=== PATIENT | male | born 1960 | race African-American/Black ===

== ENCOUNTER 2018-12-12 17:27 | Emergency (ER) | payer MEDICAID ==
[2018-12-12] MEDS ORDERED: HYDROcodone/Acetaminophen 10/325 mg Tablet ONE (19:11)
--- NOTE | 2018-12-12 19:16 | CT ---
CT CERVICAL SPINE PERFORMED WITHOUT CONTRAST ENHANCEMENT: History: Neck pain. FINDINGS: The vertebral bodies are normal in height. There is suggestion of some bony demineralization. There i s some mild disc narrowing at C5-6. There are degenerative facet changes noted. There is asymmetric r ight facet and uncal vertebral changes at C3-4 with some mild right foraminal narrowing. There is bhanu rly pronounced left sided foraminal stenosis related to uncal vertebral and facet changes at this lev el. No central canal stenosis. Lung apices are clear. IMPRESSION: Arthritic changes of the spine. Areas of foraminal stenosis as discussed above. POS: [id number]
== END 2018-12-12 19:43 | disposition home or self-care (01) ==
LOC: ERS 17:27
DX: S46.812A Strain of other muscles, fascia and tendons at shoulder and upper arm level, left arm, initial encounter (principal); Z86.73 Personal history of transient ischemic attack (TIA), and cerebral infarction without residual deficits; X58.XXXA Exposure to other specified factors, initial encounter
CPT/HCPCS: 72125

== ENCOUNTER 2019-04-25 15:02 | Outpatient (CLI) | payer OTHER ==
--- NOTE | 2019-04-26 08:14 | CT ---
CT Chest Abd Pelvis W Con History: c20. Rectal cancer Comparison: CT chest abdomen and pelvis May 2018 Findings: Mild size increase right major perifissural nodule measuring 6 mm. No suspicious intraparen chymal pulmonary nodule. No pneumothorax. No effusion. Thyroid is unremarkable. No mediastinal adenopathy. Prevascular lymph node size is similar. No axillary nor internal mammary adenopathy. No abnormal hepatic mass. Similar appearance of the desc ending colon ostomy. No abnormal soft tissue mass within the presacral space. Presacral soft tissue edema has decreased, treatment effect. Mild ectasia of the distal right ureter. Prostate is mildly en larged. Mild thickening of the left adrenal gland is similar. Renal cysts are similar. Spleen, pancreas, gallbladder are all normal. No mesenteric adenopathy. No suspicious osteolytic or o steoblastic lesions. No acute osseous abnormality. Impression: No evidence for disease recurrence nor metastases in the chest, abdomen, or pelvis.
== END 2019-04-25 15:03 | disposition home or self-care (01) ==
LOC: BICCT 15:02
PROVIDERS: ATTEND Internal Medicine Hematology & Oncology
DX: C20 Malignant neoplasm of rectum (principal); N53.19 Other ejaculatory dysfunction
CPT/HCPCS: 71260; 74177